=== PATIENT | male | born 2000 | race Two or more races ===

== ENCOUNTER 2024-10-11 15:10 | Emergency (ER) | payer MEDICAID ==
[~2024-10-11] VITALS: Ht 188 cm; Wt 100.0 kg
[2024-10-11 15:25] LABS: COVID AG,FIA SOURCE NASAL SWAB
[2024-10-11 15:45] LABS: SARS-COV2 (COVID) ANTIGEN,FIA Negative (Negative)
[2024-10-11 15:46] LABS: INFLUENZA TYPE A NEGATIVE FOR TYPE A (NEGATIVE); INFLUENZA TYPE B NEGATIVE FOR TYPE B (NEGATIVE)
[2024-10-11] MEDS: IBUPROFEN 600 MG TABLET PO ONE (17:13)
[2024-10-11] MEDS: ACETAMINOPHEN 500 MG TABLET PO ONE (17:13)
[2024-10-11] MEDS ORDERED: BENZ-227 PO (17:52)
[2024-10-11] MEDS ORDERED: AZIT250T9 PO (17:52)
[2024-10-11] MEDS: AZITHROMYCIN 500 MG TABLET PO ONE (18:05)
[2024-10-11] MEDS: LIDOCAINE/PF 1% 2 ML VIAL IM ONE (18:12)
[2024-10-11] MEDS: CefTRIAXone SODIUM 1 GM/VIAL IM ONE (18:12)
[2024-10-11 18:22] VITALS: BP 122/60; PULSE 86; RESP 17; TEMP 98.4; O2SAT 94
== END 2024-10-11 18:56 | disposition home or self-care (01) ==
LOC: EMS 15:10
DX: J18.9 Pneumonia, unspecified organism (principal); Z20.822 Contact with and (suspected) exposure to COVID-19
CPT/HCPCS: 99284; 71045; 87426; 87804; 96372; J0456; J0696; J3490

== ENCOUNTER 2024-10-15 20:38 | Emergency (ER) | payer MEDICAID ==
[~2024-10-15] VITALS: Ht 182.9 cm; Wt 100.0 kg
[~2024-10-15 20:38] MED LIST: AZIT250T9 PO; BENZ-227 PO
[2024-10-15 20:50] VITALS: TEMP 98.1
[2024-10-15] MEDS: ACETAMINOPHEN 500 MG TABLET PO ONE (23:45)
[2024-10-15] MEDS: OXYMETAZOLINE HCL 0.05% 15 ML NASAL SPRAY NASAL ONE (23:45)
[2024-10-15 23:54] VITALS: BP 117/70; PULSE 62; RESP 16; O2SAT 98
[2024-10-16] MEDS ORDERED: GUAIFDM PO (00:09)
[2024-10-16] MEDS ORDERED: ACET-66 PO (00:09)
[2024-10-16] MEDS ORDERED: BACI28.410 TP (00:09)
== END 2024-10-16 00:17 | disposition home or self-care (01) ==
LOC: EMS 20:42
DX: R04.0 Epistaxis (principal); J40 Bronchitis, not specified as acute or chronic; Z72.89 Other problems related to lifestyle
CPT/HCPCS: 99283